=== PATIENT | male | born 1980 | race Caucasian/White ===

== ENCOUNTER 2018-05-18 10:28 | Emergency (ER) | payer OTHER ==
[~2018-05-18] VITALS: Ht 185.4 cm; Wt 127.0 kg
[2018-05-18 10:34] VITALS: BP_SYST 151
[2018-05-18 11:10] VITALS: BP_SYST 151
== END 2018-05-18 11:10 | disposition home or self-care (01) ==
LOC: SED 10:28
DX: K59.00 Constipation, unspecified (principal); R11.0 Nausea; I10 Essential (primary) hypertension
CPT/HCPCS: 99283